=== PATIENT | male | born 1995 | race Caucasian/White ===

== ENCOUNTER 2018-10-13 11:11 | Day surgery (SDC) | payer OTHER, MEDICAID ==
[2018-10-13] VITALS (7 sets, daily range): BP systolic 116–138; BP diastolic 63–83
[~2018-10-13] VITALS: Ht 167.6 cm; Wt 112.4 kg
[~2018-10-13 11:11] MED LIST: IBUP-1985 PO; OMEP-50 PO; PALI6TAB PO; PROP10TA10 PO; TRAZ150T78 PO
[2018-10-13] MEDS ORDERED: DOCUMENT DATE & TIME OF BETA-BLOCKER PO ONE (11:15)
[2018-10-13] MEDS ORDERED: ringers solution, lacted 1,000 ML IV SCH ×2 (11:15→12:29)
[2018-10-13] MEDS ORDERED: famotidine 20mg tablet PO ONE (11:15)
[2018-10-13] MEDS ORDERED: cefazolin/dext.iso 2gm/100 ML IV ONE (11:15)
[2018-10-13] MEDS ORDERED: vancomycin inj 1,500 MG in normal saline 300ml IV soln IV ONE (11:15)
[2018-10-13] MEDS ORDERED: meperidine/PF 25mg/ml syringe IV PRN ×3 (12:30)
[2018-10-13] MEDS ORDERED: ondansetron/PF 4mg/2ml inj IV PRN (12:30)
[2018-10-13] MEDS ORDERED: proCHLORperazine 10 MG/2 ml inj IV PRN (12:30)
[2018-10-13] MEDS ORDERED: morphine 4 MG/ML inj SYRINge IV PRN ×2 (12:30)
[2018-10-13 12:55] LABS: BASOPHILS # (AUTO) 0.1 X10'3 (0-0.2); BASOPHILS % (AUTO) 0.8 % (0-1); EOSINOPHILS # (AUTO) 0.1 X10'3 (0-0.9); EOSINOPHILS % (AUTO) 1.3 % (0-6); HEMATOCRIT 46.1 % (42.0-52.0); LYMPHOCYTES # (AUTO) 2.2 X10'3 (1.1-4.8); LYMPHOCYTES % (AUTO) 30.3 % (21-51); MEAN CORPUSCULAR HEMOGLOBIN 27.7 PG (27.0-31.0); MEAN CORPUSCULAR HGB CONC 34.6 g/dL (33.0-36.5); MEAN PLATELET VOLUME 8.7 FL (7.4-10.4); MONOCYTES # (AUTO) 0.5 X10'3 (0-0.9); MONOCYTES % (AUTO) 6.9 % (2-12); NEUTROPHILS # (AUTO) 4.4 X10'3 (1.8-7.7); NEUTROPHILS % (AUTO) 60.7 % (42-75); PLATELET COUNT 273 X10'3 (140-440); RED BLOOD COUNT 5.77 X10'6 (4.70-6.10); RED CELL DISTRIBUTION WIDTH 13.3 % (11.5-14.5); WHITE BLOOD COUNT 7.2 X10'3 (4.5-11.0)
[2018-10-13] MEDS ORDERED: methylPREDNISolone sod succ 125mg/2ml vial ONE (13:06)
[2018-10-13] MEDS ORDERED: BUPIVAcaine/PF 2.5 mg/ml (0.25%) 30ml vial ONE (13:07)
[2018-10-13 13:08] LABS: ALANINE AMINOTRANSFERASE 63 U/L (12-78); ALBUMIN 4.3 G/DL (3.4-5.0); ALBUMIN/GLOBULIN RATIO 1.1 (1.1-1.5); ALKALINE PHOSPHATASE 73 IU/L (46-116); ANION GAP 7 (8-16); ASPARTATE AMINO TRANSFERASE 26 U/L (10-37); BILIRUBIN,TOTAL 0.3 MG/DL (0.1-1.0); BLOOD UREA NITROGEN 17 MG/DL (7-18); BUN/CREATININE RATIO 17.7 (5.4-32.0); CALCIUM 9.2 MG/DL (8.5-10.1); CHLORIDE 104 MMOL/L (99-107); CREATININE 0.96 MG/DL (0.60-1.10); GLUCOSE 95 MG/DL (70-104); SODIUM 137 MMOL/L (135-145); TOTAL CARBON DIOXIDE 26.3 MMOL/L (24-32); TOTAL PROTEIN 8.1 G/DL (6.4-8.2); eGFR > 90 ML/MIN
[2018-10-13] MEDS ORDERED: LIDOcaine 0.5% (5mg/ml) 50ml vial ONE (13:42)
[2018-10-13] MEDS ORDERED: midazolam 2 mg/2 ml injection ONE (13:44)
[2018-10-13] MEDS ORDERED: fentaNYL/PF 50MCG/1 ML 2ML syringe ONE (13:44)
[2018-10-13] MEDS ORDERED: propofol inj 20 ML IV ONE (14:26)
--- NOTE | 2018-10-13 14:35 | NUR ---
Received from OR via BED, accompanied by Anesthesiologist DR KENNY-- and report given by Anesthesiolgist. PATIENT A&OX4, DENIES PAIN, V/S WNL, NEUROVASCULAR CHECKS INTACT, 20G PIV LUE, SCD ON, SPLINT DRESSING TO DEEPTHI NICHOLSON
--- NOTE | 2018-10-13 15:25 | NUR ---
PATIENT A&OX4, DENIES PAIN, V/S WNL, CSM ITNACT, SCD ON, PIV D/C, DRESSING SPLINT TO RUE CDI, I HAVE REVIEWED D/C INSTRUCTIONS WITH PATIENT AND FAMILY AND THEY HAVE VERBALIZED UNDERSTANDING. PATIENT D/C HOME WITH ALL BELONGINGS AND FAMILY GAVE TRANSPORT HOME.
== END 2018-10-13 15:25 | disposition home or self-care (01) ==
LOC: PAS 11:11
PROVIDERS: ATTEND Orthopaedic Surgery
DX: G56.01 Carpal tunnel syndrome, right upper limb (principal); G56.21 Lesion of ulnar nerve, right upper limb; F41.9 Anxiety disorder, unspecified; F31.9 Bipolar disorder, unspecified; I10 Essential (primary) hypertension; K21.9 Gastro-esophageal reflux disease without esophagitis; E66.01 Morbid (severe) obesity due to excess calories; Z68.41 Body mass index [BMI] 40.0-44.9, adult; Z83.6 Family history of other diseases of the respiratory system; Z79.899 Other long term (current) drug therapy; Z98.890 Other specified postprocedural states
CPT/HCPCS: 36415; 64719; 64721; 80053; 85025; A6222; J0690; J2001; J2250; J2704; J2930; J3010; J3370; J3490; A6449; A7000; J7120